=== PATIENT | female | born 1950 | race Caucasian/White ===

== ENCOUNTER 2023-10-14 14:00 | Inpatient (IN) | payer OTHER ==
[~2023-10-14] VITALS: Ht 152.4 cm; Wt 61.7 kg
[2023-10-14 14:25] VITALS: BP_SYST 120; PULSE 88; RESP 17; TEMP 99; O2SAT 98
[2023-10-14 15:38] LABS: BASOPHILS % (AUTO) 0.6 % (0.0-2.0); HEMATOCRIT 37.6 % (36-48); HEMOGLOBIN 13.1 g/dL (12.0-16.0); LYMPHOCYTES # (AUTO) 0.7 K/uL (1.0-5.5); LYMPHOCYTES % (AUTO) 18.5 % (20.5-51.5); MEAN CORPUSCULAR HEMOGLOBIN 35 pg (27-31); MEAN CORPUSCULAR HGB CONC 35 % (32-36); MEAN CORPUSCULAR VOLUME 99 fL (79.0-98.0); MONOCYTES # (AUTO) 0.1 K/uL (0.0-1.0); NEUTROPHILS # (AUTO) 2.8 K/uL (1.8-7.7); NEUTROPHILS % (AUTO) 78.9 % (40.0-70.0); PLATELET COUNT (AUTO) 159 K/uL (130-430); RED BLOOD CELL COUNT(AUTO) 3.79 MIL/uL (4.2-6.2); RED CELL DISTRIBUTION WIDTH 13.6 % (9.0-15.0); WHITE BLOOD COUNT (AUTO) 3.5 K/uL (4.8-10.8)
[2023-10-14 15:59] LABS: ALANINE AMINOTRANSFERASE 37 U/L (12-78); ALBUMIN 3.6 g/dL (3.4-4.8); ANION GAP 16 (5-15); ASPARTATE AMINOTRANSFERASE 45 U/L (10-37); BILIRUBIN,DIRECT 0.3 mg/dL (0.0-0.3); CALCIUM 7.6 mg/dL (8.4-11.0); CARBON DIOXIDE 17 mmol/L (23-29); CHLORIDE 92 mmol/L (98-107); GLUCOSE 100 mg/dL (74-106); POTASSIUM 5.2 mmol/L (3.5-5.1); SODIUM SERUM 125 mmol/L (136-145); TOTAL BILIRUBIN 0.6 mg/dL (0.0-1.0); UREA NITROGEN, BLOOD 93 mg/dL (8-21)
[2023-10-14 16:07] LABS: CREATININE 8.48 mg/dL (0.55-1.30)
[2023-10-14 16:30] LABS: BILIRUBIN,URINE NEGATIVE (NEGATIVE); BLOOD, URINE 2+ (NEGATIVE); CLARITY/URINE CLEAR (CLEAR); COLOR,URINE YELLOW (YELLOW); GLUCOSE,URINE NEGATIVE (NEGATIVE); KETONES,URINE NEGATIVE (NEGATIVE); LEUKOCYTE ESTERASE ,URINE NEGATIVE (NEGATIVE); NITRITE, URINE NEGATIVE (NEGATIVE); PH,URINE 5.5 (5.0-8.0); PROTEIN URINE NEGATIVE (NEGATIVE); UROBILINOGEN,URINE 0.2 (0.2-1.0)
[2023-10-14] MEDS ORDERED: NACL 0.9% 2,000 ML IV ONE (17:00)
[2023-10-14] MEDS ORDERED: ONDANSETRON 4 MG ODT TAB PO PRN (17:15)
[2023-10-14 17:22] LABS: WBC,URINE 0-3 /HPF (0-3)
[2023-10-14 17:23] LABS: BACTERIA,URINE RARE /HPF (None Seen)
[2023-10-14] MEDS ORDERED: GLIP10TA21 PO (17:24)
[2023-10-14] MEDS ORDERED: BISO5POW PO (17:24)
[2023-10-14] MEDS ORDERED: GABA-529 PO (17:24)
[2023-10-14] MEDS ORDERED: EMPA25TA PO (17:24)
[2023-10-14] MEDS ORDERED: DABI110C PO (17:24)
[2023-10-14] MEDS ORDERED: ATOR20TA64 PO (17:24)
[2023-10-14] MEDS ORDERED: SERT-436 PO (17:24)
[2023-10-14] MEDS ORDERED: MIRT7.5T11 PO (17:24)
[2023-10-14 17:34] LABS: PROTHROMBIN TIME 10.8 SECS (9.5-12.5)
[2023-10-14] MEDS ORDERED: OMEP-268 PO (17:40)
[2023-10-14] MEDS ORDERED: ROSU10TA29 PO (17:40)
[2023-10-14] MEDS ORDERED: LISI30TA36 PO (17:40)
[2023-10-14] MEDS ORDERED: VERA240T93 PO (17:40)
[2023-10-14 22:29] VITALS: BP_SYST 130; RESP 18; TEMP 99.2; O2SAT 97
[2023-10-15 07:43] LABS: ANION GAP 18 (5-15); CARBON DIOXIDE 13 mmol/L (23-29); CHLORIDE 102 mmol/L (98-107); GLUCOSE 87 mg/dL (74-106); POTASSIUM 5.3 mmol/L (3.5-5.1); SODIUM SERUM 133 mmol/L (136-145); UREA NITROGEN, BLOOD 93 mg/dL (8-21)
[2023-10-15 07:59] LABS: CALCIUM 6.9 mg/dL (8.4-11.0); CREATININE 8.03 mg/dL (0.55-1.30)
[2023-10-15] MEDS ORDERED: CALCIUM GLUCONATE 1 GM/10 ML VIAL IVP ONE (08:15)
[2023-10-15 08:23] VITALS: BP_SYST 138; PULSE 91; RESP 16; O2SAT 95
[2023-10-15] MEDS ORDERED: CALCIUM GLUC 1 GM/100ML-NACL 100 ML IV ONE (09:00)
[2023-10-15] MEDS ORDERED: SODIUM ZIRCONIUM CYCLOSILICATE 10 GM POWD.PACK PO ONE (09:00)
[2023-10-15] MEDS ORDERED: SODIUM BICARBONATE 8.4% JECT 50 MEQ/50 ML SYRINGE ONE (09:27)
[2023-10-15] MEDS ORDERED: SODIUM BICARBONATE 8.4% JECT 150 MEQ in D5W 1,000 ML IVP SCH (10:00)
[2023-10-15] MEDS: SODIUM BICARBONATE 8.4% VIAL 150 MEQ in D5W 1,000 ML IV SCH (11:04)
[2023-10-15 12:24] LABS: BASOPHILS % (AUTO) 0.6 % (0.0-2.0); EOSINOPHILS % (AUTO) 0.1 % (0.0-4.0); HEMATOCRIT 37.4 % (36-48); HEMOGLOBIN 12.9 g/dL (12.0-16.0); LYMPHOCYTES # (AUTO) 0.4 K/uL (1.0-5.5); MEAN CORPUSCULAR HEMOGLOBIN 34 pg (27-31); MEAN CORPUSCULAR HGB CONC 35 % (32-36); MEAN CORPUSCULAR VOLUME 99 fL (79.0-98.0); MONOCYTES % (AUTO) 0.8 % (1.7-9.3); NEUTROPHILS # (AUTO) 2.1 K/uL (1.8-7.7); NEUTROPHILS % (AUTO) 82.5 % (40.0-70.0); PLATELET COUNT (AUTO) 126 K/uL (130-430); RED BLOOD CELL COUNT(AUTO) 3.77 MIL/uL (4.2-6.2); RED CELL DISTRIBUTION WIDTH 13.8 % (9.0-15.0); WHITE BLOOD COUNT (AUTO) 2.6 K/uL (4.8-10.8)
[2023-10-15 12:40] LABS: ANION GAP 17 (5-15); CALCIUM 7.5 mg/dL (8.4-11.0); CARBON DIOXIDE 16 mmol/L (23-29); CHLORIDE 101 mmol/L (98-107); GLUCOSE 104 mg/dL (74-106); POTASSIUM 4.6 mmol/L (3.5-5.1); SODIUM SERUM 134 mmol/L (136-145); UREA NITROGEN, BLOOD 92 mg/dL (8-21)
[2023-10-15 12:43] LABS: CREATININE 8.22 mg/dL (0.55-1.30)
[2023-10-15 13:00] VITALS: BP_SYST 134; PULSE 89; RESP 17; TEMP 98.6; O2SAT 98
[2023-10-15 16:23] VITALS: BP_SYST 135; PULSE 90; RESP 16; TEMP 98.5; O2SAT 96
[2023-10-15 20:30] VITALS: BP_SYST 134; PULSE 92; RESP 20; TEMP 97.5; O2SAT 95
[2023-10-16] MEDS: SODIUM BICARBONATE 8.4% VIAL 150 MEQ in D5W 1,000 ML IV SCH ×2 (00:58→17:01)
[2023-10-16 01:00] VITALS: BP_SYST 129; PULSE 84; RESP 20; TEMP 97.6; O2SAT 95
[2023-10-16 06:43] LABS: ALANINE AMINOTRANSFERASE 43 U/L (12-78); ALBUMIN 3.1 g/dL (3.4-4.8); ANION GAP 19 (5-15); ASPARTATE AMINOTRANSFERASE 43 U/L (10-37); CALCIUM 7.2 mg/dL (8.4-11.0); CARBON DIOXIDE 16 mmol/L (23-29); CHLORIDE 103 mmol/L (98-107); CREATININE 6.82 mg/dL (0.55-1.30); GLUCOSE 95 mg/dL (74-106); PHOSPHORUS 7.7 mg/dL (2.7-4.5); POTASSIUM 3.6 mmol/L (3.5-5.1); SODIUM SERUM 138 mmol/L (136-145); TOTAL BILIRUBIN 0.6 mg/dL (0.0-1.0); TOTAL PROTEIN, SERUM 7.1 g/dL (6.4-8.3); UREA NITROGEN, BLOOD 80 mg/dL (8-21)
[2023-10-16 08:00] VITALS: BP_SYST 122; PULSE 88; RESP 17; TEMP 98.9; O2SAT 100
[2023-10-16 09:11] LABS: HEMOGLOBIN 12.4 g/dL (12.0-16.0); MEAN CORPUSCULAR HEMOGLOBIN 34 pg (27-31); MEAN CORPUSCULAR HGB CONC 35 % (32-36); MEAN CORPUSCULAR VOLUME 98 fL (79.0-98.0); PLATELET COUNT (AUTO) 123 K/uL (130-430); RED BLOOD CELL COUNT(AUTO) 3.67 MIL/uL (4.2-6.2); RED CELL DISTRIBUTION WIDTH 13.5 % (9.0-15.0); WHITE BLOOD COUNT (AUTO) 2.7 K/uL (4.8-10.8)
[2023-10-16 10:44] LABS: BASOPHILS % (MANUAL) 0 % (0-2); EOSINOPHILS % (MANUAL) 0 % (0-7); LYMPHOCYTES % (MANUAL) 18 % (20-46); MONOCYTES % (MANUAL) 2 % (0-11); PLATELET ESTIMATE DECREASED (ADEQUATE)
[2023-10-16 12:30] VITALS: BP_SYST 131; PULSE 84; RESP 18; TEMP 97.8; O2SAT 100
[2023-10-16 20:30] VITALS: BP_SYST 135; PULSE 85; RESP 20; TEMP 98.2; O2SAT 95
[2023-10-17] VITALS (7 sets, daily range): BP systolic 121–129; PULSE 85–90; RESP 16–20; TEMP 97.3–98.2; O2SAT 96–98
[2023-10-17 07:15] LABS: BASOPHILS % (AUTO) 0.6 % (0.0-2.0); EOSINOPHILS % (AUTO) 0.3 % (0.0-4.0); HEMATOCRIT 38.7 % (36-48); HEMOGLOBIN 13.4 g/dL (12.0-16.0); LYMPHOCYTES # (AUTO) 0.7 K/uL (1.0-5.5); LYMPHOCYTES % (AUTO) 32.8 % (20.5-51.5); MEAN CORPUSCULAR HEMOGLOBIN 34 pg (27-31); MEAN CORPUSCULAR HGB CONC 35 % (32-36); MEAN CORPUSCULAR VOLUME 99 fL (79.0-98.0); MONOCYTES % (AUTO) 1.4 % (1.7-9.3); NEUTROPHILS # (AUTO) 1.5 K/uL (1.8-7.7); NEUTROPHILS % (AUTO) 64.9 % (40.0-70.0); PLATELET COUNT (AUTO) 125 K/uL (130-430); RED BLOOD CELL COUNT(AUTO) 3.93 MIL/uL (4.2-6.2); RED CELL DISTRIBUTION WIDTH 13.9 % (9.0-15.0); WHITE BLOOD COUNT (AUTO) 2.2 K/uL (4.8-10.8)
[2023-10-17 07:20] LABS: ALANINE AMINOTRANSFERASE 46 U/L (12-78); ALBUMIN 3.5 g/dL (3.4-4.8); ANION GAP 20 (5-15); ASPARTATE AMINOTRANSFERASE 44 U/L (10-37); CALCIUM 7.5 mg/dL (8.4-11.0); CARBON DIOXIDE 19 mmol/L (23-29); CHLORIDE 102 mmol/L (98-107); GLUCOSE 111 mg/dL (74-106); POTASSIUM 3.4 mmol/L (3.5-5.1); SODIUM SERUM 141 mmol/L (136-145); TOTAL BILIRUBIN 0.7 mg/dL (0.0-1.0); TOTAL PROTEIN, SERUM 7.8 g/dL (6.4-8.3); UREA NITROGEN, BLOOD 70 mg/dL (8-21)
[2023-10-17] MEDS: SEVELAMER CARBONATE 800 MG TABLET PO SCH ×3 (09:13→17:45)
[2023-10-17] MEDS: SODIUM BICARBONATE 8.4% VIAL 150 MEQ in D5W 1,000 ML IV SCH (10:16)
[2023-10-17] MEDS ORDERED: POTASSIUM CHLORIDE 20 MEQ TABLET.ER PO ONE (19:00)
[2023-10-18] VITALS (7 sets, daily range): BP systolic 106–130; PULSE 84–97; RESP 16–18; TEMP 97.4–99.7; O2SAT 96–98
[2023-10-18] MEDS: SODIUM BICARBONATE 8.4% VIAL 150 MEQ in D5W 1,000 ML IV SCH ×2 (02:10→16:23)
[2023-10-18 08:06] LABS: A/G RATIO 0.8 (0.7-1.7); ALBUMIN 2.9 g/dL (2.9-4.4); ALPHA-1-GLOBULIN 0.3 g/dL (0.0-0.4); ALPHA-2-GLOBULIN 0.9 g/dL (0.4-1.0); BETA GLOBULIN 1.1 g/dL (0.7-1.3); GAMMA GLOBULIN 1.3 g/dL (0.4-1.8); GLOBULIN, TOTAL 3.5 g/dL (2.2-3.9); M-SPIKE Not Observed g/dL (Not Observed)
[2023-10-18] MEDS: SEVELAMER CARBONATE 800 MG TABLET PO SCH ×3 (09:49→18:20)
[2023-10-19 05:12] LABS: ANION GAP 12 (5-15); CALCIUM 7.3 mg/dL (8.4-11.0); CARBON DIOXIDE 32 mmol/L (23-29); CHLORIDE 96 mmol/L (98-107); CREATININE 3.32 mg/dL (0.55-1.30); GLUCOSE 103 mg/dL (74-106); SODIUM SERUM 140 mmol/L (136-145); UREA NITROGEN, BLOOD 46 mg/dL (8-21)
[2023-10-19 05:30] LABS: BASOPHILS % (AUTO) 0.1 % (0.0-2.0); EOSINOPHILS % (AUTO) 0.9 % (0.0-4.0); HEMATOCRIT 36.9 % (36-48); HEMOGLOBIN 12.9 g/dL (12.0-16.0); LYMPHOCYTES # (AUTO) 1.1 K/uL (1.0-5.5); LYMPHOCYTES % (AUTO) 44.1 % (20.5-51.5); MEAN CORPUSCULAR HEMOGLOBIN 34 pg (27-31); MEAN CORPUSCULAR HGB CONC 35 % (32-36); MEAN CORPUSCULAR VOLUME 97 fL (79.0-98.0); MONOCYTES # (AUTO) 0.1 K/uL (0.0-1.0); NEUTROPHILS # (AUTO) 1.2 K/uL (1.8-7.7); NEUTROPHILS % (AUTO) 50.9 % (40.0-70.0); PLATELET COUNT (AUTO) 82 K/uL (130-430); RED BLOOD CELL COUNT(AUTO) 3.81 MIL/uL (4.2-6.2); RED CELL DISTRIBUTION WIDTH 13.8 % (9.0-15.0); WHITE BLOOD COUNT (AUTO) 2.5 K/uL (4.8-10.8)
[2023-10-19 05:43] LABS: POTASSIUM 2.8 mmol/L (3.5-5.1)
[2023-10-19] MEDS: SODIUM BICARBONATE 8.4% VIAL 150 MEQ in D5W 1,000 ML IV SCH (06:05)
[2023-10-19 08:00] VITALS: BP_SYST 118; PULSE 89; RESP 16; TEMP 97; O2SAT 94; O2SAT 99
[2023-10-19] MEDS ORDERED: KCL 40 mEq in 100 mL (PREMIX) 100 ML IV ONE (08:00)
[2023-10-19] MEDS: SEVELAMER CARBONATE 800 MG TABLET PO SCH ×3 (10:12→19:04)
[2023-10-19] MEDS: POTASSIUM CHLORIDE 40 MEQ, LIDOCAINE JECT 2% PF 100 MG 75 MG in NS 250 ML IV ONE ×2 (11:00→13:50)
[2023-10-19] MEDS ORDERED: POTASSIUM CHLORIDE 20 MEQ TABLET.ER PO ONE ×2 (14:30→18:30)
[2023-10-19 20:00] VITALS: BP_SYST 121; PULSE 106; RESP 20; TEMP 98.8; O2SAT 96
[2023-10-20 04:43] LABS: EOSINOPHILS % (AUTO) 0.6 % (0.0-4.0); HEMATOCRIT 36.7 % (36-48); HEMOGLOBIN 12.9 g/dL (12.0-16.0); LYMPHOCYTES # (AUTO) 0.4 K/uL (1.0-5.5); LYMPHOCYTES % (AUTO) 15.1 % (20.5-51.5); MEAN CORPUSCULAR HEMOGLOBIN 34 pg (27-31); MEAN CORPUSCULAR HGB CONC 35 % (32-36); MEAN CORPUSCULAR VOLUME 97 fL (79.0-98.0); MONOCYTES # (AUTO) 0.1 K/uL (0.0-1.0); MONOCYTES % (AUTO) 4.2 % (1.7-9.3); NEUTROPHILS # (AUTO) 2.3 K/uL (1.8-7.7); NEUTROPHILS % (AUTO) 80.1 % (40.0-70.0); PLATELET COUNT (AUTO) 53 K/uL (130-430); RED BLOOD CELL COUNT(AUTO) 3.77 MIL/uL (4.2-6.2); RED CELL DISTRIBUTION WIDTH 13.4 % (9.0-15.0); WHITE BLOOD COUNT (AUTO) 2.8 K/uL (4.8-10.8)
[2023-10-20 05:07] LABS: ANION GAP 12 (5-15); CALCIUM 7.1 mg/dL (8.4-11.0); CARBON DIOXIDE 26 mmol/L (23-29); CHLORIDE 96 mmol/L (98-107); CREATININE 3.48 mg/dL (0.55-1.30); GLUCOSE 106 mg/dL (74-106); SODIUM SERUM 134 mmol/L (136-145); UREA NITROGEN, BLOOD 46 mg/dL (8-21)
[2023-10-20 05:53] LABS: POTASSIUM 2.9 mmol/L (3.5-5.1)
[2023-10-20] MEDS ORDERED: POTASSIUM CHLORIDE 20 MEQ TABLET.ER PO ONE ×2 (07:00→18:00)
[2023-10-20 08:00] VITALS: BP_SYST 106; PULSE 74; RESP 18; TEMP 99.5; O2SAT 96
[2023-10-20] MEDS ORDERED: KCL 20 mEq in 100 mL (PREMIX) 100 ML IV ONE ×2 (08:00→10:00)
[2023-10-20] MEDS ORDERED: NON-FORMULARY MEDICATION (Rosuvastatin Calcium 1 TAB) PO SCH (09:00)
[2023-10-20] MEDS ORDERED: VERAPAMIL HCL PO SCH (09:00)
[2023-10-20] MEDS ORDERED: OMEPRAZOLE PO SCH (09:00)
[2023-10-20] MEDS ORDERED: PRO40 PO (09:13)
[2023-10-20] MEDS ORDERED: ATORVASTATIN 20 MG TABLET PO ONE (09:15)
[2023-10-20] MEDS ORDERED: PANTOPRAZOLE SODIUM 40 MG TAB PO ONE (09:15)
[2023-10-20] MEDS: SEVELAMER CARBONATE 800 MG TABLET PO SCH ×3 (09:26→18:09)
[2023-10-20] MEDS ORDERED: LOPERAMIDE HCL 2 MG CAPSULE PO ONE (11:15)
[2023-10-20 11:40] VITALS: O2SAT 95
[2023-10-20 11:50] VITALS: BP_SYST 106; PULSE 68; RESP 18; TEMP 97; O2SAT 97
[2023-10-20] MEDS ORDERED: POTASSIUM CHLORIDE 40 MEQ, LIDOCAINE JECT 2% PF 100 MG 50 MG in NS 250 ML IV ONE (12:00)
[2023-10-20] MEDS ORDERED: POTA-197 PO (17:45)
[2023-10-20 18:18] VITALS: BP_SYST 101; PULSE 81; RESP 18; TEMP 98.1; O2SAT 97
[2023-10-20 18:19] VITALS: BP_SYST 101; PULSE 81; RESP 18; TEMP 98.1; O2SAT 97
[2023-10-21] MEDS ORDERED: VERAPAMIL HCL 120 MG TABLET.SA PO SCH (09:00)
[2023-10-21] MEDS ORDERED: ATORVASTATIN 20 MG TABLET PO SCH (09:00)
[2023-10-21] MEDS ORDERED: PANTOPRAZOLE SODIUM 40 MG TAB PO SCH (09:00)
== END 2023-10-20 19:31 | disposition home health service (06) | DRG 682 ==
LOC: SED 14:00 → STU 17:03 → SMU 21:16 → STU 21:16 → SMU 10-18 23:27
PROVIDERS: ADMIT Family Medicine; ATTEND Family Medicine
DX: N17.0 Acute kidney failure with tubular necrosis (principal); R65.11 Systemic inflammatory response syndrome (SIRS) of non-infectious origin with acute organ dysfunction; E87.1 Hypo-osmolality and hyponatremia; E87.20 Acidosis, unspecified; E87.5 Hyperkalemia; E86.0 Dehydration; E78.5 Hyperlipidemia, unspecified; K21.9 Gastro-esophageal reflux disease without esophagitis; E83.51 Hypocalcemia; E83.39 Other disorders of phosphorus metabolism; E87.6 Hypokalemia; Z79.899 Other long term (current) drug therapy
CPT/HCPCS: 36415; 71045; 76376; 76770; 80048; 80053; 80076; 81000; 81001; 81015; 82310; 82570; 83605; 83880; 83970; 84100; 84155; 84165; 84302; 85007; 85025; 85027; 85610; 93005; 97116-GP; 97163-GP; 99285; G0378; J3480; J7050; J7060; Q0162

== ENCOUNTER 2024-07-23 20:46 | Emergency (ER) | payer OTHER ==
[~2024-07-23] VITALS: Ht 144.8 cm; Wt 61.2 kg
[~2024-07-23 20:46] MED LIST: OMEP-268 PO; POTA-197 PO; PRO40 PO; ROSU10TA72 PO; VERA240T93 PO
[2024-07-23 21:07] VITALS: BP_SYST 182; PULSE 91; RESP 17; TEMP 97.8; O2SAT 97
[2024-07-24] MEDS: AMOXICILLIN/POTASSIUM CLAV 875 MG TABLET PO ONE (01:41)
[2024-07-24 05:04] VITALS: BP_SYST 184; PULSE 107; RESP 18; TEMP 98.1; O2SAT 95
== END 2024-07-24 05:04 | disposition short-term general hospital (02) ==
LOC: SED 20:46
DX: S02.40CA Maxillary fracture, right side, initial encounter for closed fracture (principal); S02.40EA Zygomatic fracture, right side, initial encounter for closed fracture; I10 Essential (primary) hypertension; E78.5 Hyperlipidemia, unspecified; K21.9 Gastro-esophageal reflux disease without esophagitis; E78.00 Pure hypercholesterolemia, unspecified; Z79.899 Other long term (current) drug therapy; W01.0XXA Fall on same level from slipping, tripping and stumbling without subsequent striking against object, initial encounter; Y93.89 Activity, other specified; Y92.89 Other specified places as the place of occurrence of the external cause; Y99.8 Other external cause status
CPT/HCPCS: 70450-TC; 70486; 99291